=== PATIENT | male | born 1950 | race African-American/Black ===

== ENCOUNTER 2020-02-07 18:42 | Emergency (ER) | payer MEDICARE ==
[~2020-02-07 18:42] MED LIST: AMITIZA24 MCG OR; ASPIRIN81 M2 OR; LORTAB 5 OR; NEXIUM40 M1 OR; TOPROL XL50 MG OR; VYTORIN 10/201 TAB OR
[2020-02-07] MEDS ORDERED: LISINOP/HCTZ1 TA1 PO (19:44)
[2020-02-07] MEDS ORDERED: PROTONIX20 MG PO (19:45)
[2020-02-07] MEDS ORDERED: ATORVASTATIN CA20 MG PO (19:45)
[2020-02-07 19:50] VITALS: BP 128/76
== END 2020-02-07 19:50 | disposition home or self-care (01) ==
LOC: ED 18:42
DX: R04.0 Epistaxis (principal); I10 Essential (primary) hypertension; Z79.82 Long term (current) use of aspirin

== ENCOUNTER 2020-10-05 09:10 | Day surgery (SDC) | payer MEDICARE ==
[~2020-10-05 09:10] MED LIST changes: +ASPIRIN81 MG PO; +ATORVASTATIN CA20 MG PO; +LISINOP/HCTZ1 TA1 PO; +PROTONIX20 MG PO; +VITAMIN D320 MCG PO
[2020-10-05] MEDS ORDERED: ALLERGY PO (10:46)
[2020-10-05 12:07] VITALS: BP 129/85
== END 2020-10-05 12:20 | disposition home or self-care (01) ==
LOC: ENDO 09:10
PROVIDERS: ATTEND Surgery
PROC: 0DJD8ZZ Inspection of Lower Intestinal Tract, Via Natural or Artificial Opening Endoscopic (ICD-10-PCS; principal; 2020-10-05)
DX: Z12.11 Encounter for screening for malignant neoplasm of colon (principal); K64.8 Other hemorrhoids; I10 Essential (primary) hypertension; Z20.828 Contact with and (suspected) exposure to other viral communicable diseases

== ENCOUNTER 2021-04-03 18:04 | Emergency (ER) | payer MEDICARE ==
[~2021-04-03] VITALS: Ht 172.7 cm; Wt 64.0 kg
[~2021-04-03 18:04] MED LIST changes: +ALLERGY PO
[2021-04-03 19:22] LABS: IMMATURE GRANULOCYTES 0.1 % (0.0-5.0); MEAN CELL VOLUME 84.7 fL CALC (80.0-100.0); MEAN CORPUSCULAR HGB 27.9 pG CALC (26.0-32.0); NEUT# 2.87 thou/uL (1.82-7.42); RED BLOOD COUNT 4.12 mill/uL (4.70-6.10); RED CELL DISTRI WIDTH 14.5 % (11.5-15.5)
[2021-04-03 19:23] LABS: HEMATOCRIT 34.9 % (39.0-50.0); HEMOGLOBIN 11.5 g/dl (14.0-18.0)
[2021-04-03 19:34] LABS: URINE BILIRUBIN - DIPSTICK NEGATIVE (NEGATIVE); URINE BLOOD DIPSTICK TRACE-LYSED (NEGATIVE); URINE COLOR YELLOW; URINE GLUCOSE - DIPSTICK NEGATIVE (NEGATIVE); URINE KETONE NEGATIVE (NEGATIVE); URINE LEUK ESTERASE NEGATIVE (NEGATIVE); URINE PROTEIN - DIPSTICK NEGATIVE (NEG-TRACE); URINE UROBILINOGEN - DIPSTICK 0.2 E.U./dL (0.2)
[2021-04-03 19:37] LABS: URINE NITRITE - DIPSTICK NEGATIVE (Negative)
[2021-04-03 19:43] LABS: ALBUMIN 4.3 g/dL (3.2-5.0); ALKALINE PHOSPHATASE 34 u/l (38-126); ANION GAP 13 (6-22 (CALC)); BILIRUBIN, TOTAL 0.6 mg/dL (0.0-1.4); BUN 16 mg/dL (8-23); BUN/CREATININE RATIO 16 (12-20 (CALC)); CARBON DIOXIDE 25 mmol/l (22-30); CHLORIDE 100 mmol/l (95-108); GFR > 60 ML/MIN (>=60 (CALC)); GFR FOR AFR.AMER. > 60 ML/MIN (>=60 (CALC)); POTASSIUM 3.4 mmol/l (3.5-5.1); SGOT/AST 32 u/l (19-48); SODIUM 135 mmol/l (137-146); TOTAL PROTEIN 7.8 g/dL (6.3-8.2)
[2021-04-03 19:45] LABS: ACT PARTIAL THROMBO TIME 25.3 SECONDS (20.0-32.5); PROTHROMBIN TIME 10.4 SECONDS (9.0-12.5)
[2021-04-03] MEDS ORDERED: CLARITIN10 M2 PO (20:22)
[2021-04-03 20:29] VITALS: BP 153/75
== END 2021-04-03 21:36 | disposition home or self-care (01) ==
LOC: ED 18:04
PROVIDERS: Emergency Medicine
DX: R04.0 Epistaxis (principal); I10 Essential (primary) hypertension; E78.5 Hyperlipidemia, unspecified; K21.9 Gastro-esophageal reflux disease without esophagitis; Z79.82 Long term (current) use of aspirin

== ENCOUNTER 2025-01-22 09:24 | Emergency (ER) | payer MEDICARE ==
[~2025-01-22] VITALS: Ht 172.7 cm; Wt 67.0 kg
[~2025-01-22 09:24] MED LIST changes: +CLARITIN10 M2 PO
[2025-01-22 09:32] VITALS: BP 142/88
[2025-01-22 09:45] VITALS: BP 132/83
[2025-01-22 10:00] VITALS: BP 118/83
[2025-01-22 10:15] VITALS: BP 121/80
[2025-01-22 10:30] VITALS: BP 121/80
[2025-01-22] MEDS ORDERED: ZPAK PO (10:34)
== END 2025-01-22 10:39 | disposition home or self-care (01) ==
LOC: ED 09:24
DX: J11.1 Influenza due to unidentified influenza virus with other respiratory manifestations (principal); I10 Essential (primary) hypertension; Z20.822 Contact with and (suspected) exposure to COVID-19